=== PATIENT | female | born 1980 | race Caucasian/White ===

== ENCOUNTER 2021-03-11 11:52 | Emergency (ER) | payer MEDICARE, MEDICAID ==
[~2021-03-11] VITALS: Ht 160 cm; Wt 68.2 kg
[2021-03-11] MEDS ORDERED: ringers solution, lactated 1000ml IV soln IV ONE (12:30)
[2021-03-11 13:04] LABS: BASOPHILS % (AUTO) 0.1 % (0-1); EOSINOPHILS % (AUTO) 0 % (0-6); HEMATOCRIT 42.6 % (35.0-45.0); HEMOGLOBIN 14.5 g/dl (12.0-16.0); LYMPHOCYTES # (AUTO) 1.1 X10'3 (1.1-4.8); LYMPHOCYTES % (AUTO) 13.8 % (21-51); MEAN CORPUSCULAR HEMOGLOBIN 29.8 PG (27.0-31.0); MEAN CORPUSCULAR HGB CONC 34.1 g/dL (33.0-36.5); MEAN CORPUSCULAR VOLUME 87.4 FL (78-98); MEAN PLATELET VOLUME 8.5 FL (7.4-10.4); MONOCYTES # (AUTO) 0.2 X10'3 (0-0.9); NEUTROPHILS # (AUTO) 6.9 X10'3 (1.8-7.7); NEUTROPHILS % (AUTO) 83.1 % (42-75); PLATELET COUNT 167 X10'3 (140-440); RED BLOOD COUNT 4.87 X10'6 (4.20-5.60); RED CELL DISTRIBUTION WIDTH 12.9 % (11.5-14.5); WHITE BLOOD COUNT 8.3 X10'3 (4.5-11.0)
[2021-03-11 13:20] LABS: ALANINE AMINOTRANSFERASE 32 U/L (12-78); ALBUMIN 2.9 G/DL (3.4-5.0); ALBUMIN/GLOBULIN RATIO 0.7 (1.1-1.5); ALKALINE PHOSPHATASE 66 IU/L (46-116); ANION GAP 6 (8-16); ASPARTATE AMINO TRANSFERASE 28 U/L (10-37); BILIRUBIN,TOTAL 0.3 MG/DL (0.1-1.0); BLOOD UREA NITROGEN 9 MG/DL (7-18); BUN/CREATININE RATIO 10.5 (6.6-38.0); CALCIUM 8.7 MG/DL (8.5-10.1); CHLORIDE 102 MMOL/L (99-107); CREATININE 0.86 MG/DL (0.40-0.90); GLUCOSE 158 MG/DL (70-104); MAGNESIUM 1.7 MG/DL (1.5-2.4); POTASSIUM 3.5 MMOL/L (3.5-5.1); SODIUM 137 MMOL/L (135-145); TOTAL CARBON DIOXIDE 28.8 MMOL/L (24-32); TOTAL PROTEIN 7.1 G/DL (6.4-8.2); eGFR 73 ML/MIN
[2021-03-11] MEDS ORDERED: CASIRIVIMAB/IMDEVIMAB inject. 10 ML in normal saline 100ml IV soln 100 ML IV ONE (13:40)
[2021-03-11 16:47] VITALS: BP 117/79
== END 2021-03-11 16:49 | disposition home or self-care (01) ==
LOC: ER 11:53
DX: U07.1 COVID-19 (principal); R05.9 Cough, unspecified; R06.02 Shortness of breath; R53.1 Weakness; R50.9 Fever, unspecified; R11.0 Nausea
CPT/HCPCS: 36415; 71045; 80053; 83735; 84145; 85025; 96360; 96361; 99285; M0243; Q0244; J7120

== ENCOUNTER 2021-10-30 12:09 | Emergency (ER) | payer MEDICARE, MEDICAID ==
[~2021-10-30] VITALS: Ht 160 cm; Wt 70.5 kg
[2021-10-30 12:27] VITALS: BP 165/109
[2021-10-30] MEDS ORDERED: NIRM1TAB PO ×3 (12:44→13:43)
== END 2021-10-30 13:17 | disposition home or self-care (01) ==
LOC: ER 12:10
DX: U07.1 COVID-19 (principal); R05.9 Cough, unspecified; M79.7 Fibromyalgia; Z79.899 Other long term (current) drug therapy
CPT/HCPCS: 99283

== ENCOUNTER 2022-12-22 22:18 | Emergency (ER) | payer MEDICARE, MEDICAID ==
[~2022-12-22] VITALS: Ht 160 cm; Wt 70.5 kg
[~2022-12-22 22:18] MED LIST: NIRM1TAB PO
[2022-12-22 22:48] VITALS: BP 163/116; PULSE 95; RESP 20; O2SAT 98
[2022-12-23] MEDS ORDERED: NIRM1TAB PO (00:47)
[2022-12-23 00:55] VITALS: TEMP 98.3
== END 2022-12-23 00:57 | disposition home or self-care (01) ==
LOC: ER 22:19
DX: U07.1 COVID-19 (principal); Z88.8 Allergy status to other drugs, medicaments and biological substances; Z79.899 Other long term (current) drug therapy
CPT/HCPCS: 99283